=== PATIENT | male | born 1940 | race Caucasian/White ===

== ENCOUNTER 2019-03-08 12:35 | Outpatient (CLI) | payer OTHER, MEDICARE | END 2019-03-08 21:23 | disposition home or self-care (01) | LOC: SCA 12:35 | DX: I08.0 Rheumatic disorders of both mitral and aortic valves (principal); I10 Essential (primary) hypertension | CPT/HCPCS: 93306 ==

== ENCOUNTER 2023-07-06 14:25 | Outpatient (CLI) | payer OTHER | END 2023-07-06 20:57 | disposition home or self-care (01) | LOC: SCA 14:25 | DX: I08.2 Rheumatic disorders of both aortic and tricuspid valves (principal) | CPT/HCPCS: 93306 ==